=== PATIENT | male | born 1960 | race Caucasian/White ===

== ENCOUNTER 2017-07-26 21:49 | Inpatient (IN) | payer BC ==
[~2017-07-26] VITALS: Ht 185.4 cm; Wt 110.0 kg
[2017-07-26] MEDS ORDERED: NAPR500T3 PO (22:03)
[2017-07-26] MEDS ORDERED: MORP5SUP PR (22:03)
[2017-07-26] MEDS ORDERED: FLOM5CAP PO (22:03)
[2017-07-26] MEDS ORDERED: NS 1,000 ML IV ONE (22:45)
[2017-07-26] MEDS ORDERED: MAGNESIUM CITRATE 300 ML BTL PO ONE (23:00)
[2017-07-26 23:03] LABS: BASO % 0.1 % (0.0-1.0); EOS # 0.2 K/mm3 (0.0-0.50); EOS % 1.1 % (0.0-3.0); LARGE UNSTAINED CELL # 0.1 K/mm3 (0.0-0.4); LARGE UNSTAINED CELL % 0.7 % (0.0-4.0); LYMPH # 0.8 K/mm3 (1.5-4.5); MEAN CORPUSCULAR HEMOGLOBIN 31.6 pg (27.0-33.0); MEAN CORPUSCULAR HGB CONC 33.5 g/dl (32.0-36.5); MEAN CORPUSCULAR VOLUME 94.3 fl (80.0-96.0); MONO # 0.7 K/mm3 (0.0-0.8); MONO % 4.5 % (0.0-5.0); NEUTROPHILS # 12.8 K/mm3 (1.8-7.7); NEUTROPHILS % 88.6 % (36.0-66.0); PLATELET COUNT, AUTOMATED 225 k/mm3 (150-450); RED CELL DISTRIBUTION WIDTH 12.8 % (11.5-14.5); WHITE BLOOD COUNT 14.5 K/mm3 (4.0-10.0)
[2017-07-26 23:23] LABS: CALCIUM LEVEL 9.4 MG/DL (8.5-10.1); CREATININE FOR GFR 1.69 MG/DL (0.70-1.30); GLOMERULAR FILTRATION RATE 44.7 (>56); POTASSIUM SERUM 4.1 MEQ/L (3.5-5.1)
[2017-07-26 23:47] LABS: YEAST LIKE CELL URINE AUTO SMALL
--- NOTE | 2017-07-26 23:50 | REPUSA ---
CT of the abdomen and pelvis without contrast Clinical statement: Pain. Technique: Multiple axial CT images were obtained from the base of the lungs to the floor of the pelv is utilizing 5 mm axial slices without administration of contrast. Coronal and sagittal reconstructio ns were also obtained. No comparison is available. Findings: Chest: The visualized lung bases are clear. Abdomen: The kidneys are normal in size bilaterally. There is severe left-sided hydronephrosis, with left perinephric inflammatory changes noted. There is also severe left-sided hydroureter. Several obs tructing stones are seen in the distal left ureter, measuring up to 5 mm in diameter. The liver, sple en, pancreas, gallbladder and adrenal glands are unremarkable. The aorta demonstrates normal caliber and contour. There is no abdominal lymphadenopathy or ascites. Pelvis: The bowel is unremarkable, with no obstructive or inflammatory changes. The urinary bladder i s within normal limits. There is no pelvic lymphadenopathy or ascites. The other pelvic structures ap pear unremarkable. Bones: There are no suspicious osseous abnormalities seen. Impression: Severe left-sided hydronephrosis with extensive perinephric inflammation and stranding. T his is caused by several obstructing stones in the distal left ureter, measuring up to 5 mm in diamet er.
[2017-07-27] MEDS ORDERED: MAGNESIUM CITRATE 300 ML BTL PO ONE (00:15)
[2017-07-27] MEDS ORDERED: ASPI81CH PO (02:20)
[2017-07-27] MEDS ORDERED: CLAR1TAB2 PO (02:20)
[2017-07-27] MEDS ORDERED: VITA100066 PO (02:20)
[2017-07-27] MEDS ORDERED: MORP15TA2 PO (02:20)
[2017-07-27] MEDS ORDERED: VITMTA PO (02:20)
[2017-07-27] MEDS ORDERED: TYLE500T78 PO (02:20)
[2017-07-27] MEDS ORDERED: [UNRECOGNIZED DRUG - SUPPLY] PO (02:20)
[2017-07-27] MEDS ORDERED: PATIENT COMMENT (02:21)
[2017-07-27] MEDS ORDERED: MORPHINE 4 MG/ML 1ML SYRINGE IV PRN (05:00)
[2017-07-27] MEDS ORDERED: KCL 20MEQ IN D5/0.45NS 1000ML 1,000 ML IV SCH (05:00)
[2017-07-27] MEDS ORDERED: ONDANSETRON 4MG/2ML VIAL (J2405) IV PRN (05:00)
[2017-07-27 06:00] VITALS: BP 135/79
[2017-07-27] MEDS ORDERED: LevoFLOXacin IV 500 MG in APPROPRIATE DILUENT 1 EA IV SCH (06:00)
[2017-07-27] MEDS ORDERED: KETOROLAC 30 MG/ML VIAL (J1885) IV SCH (06:00)
[2017-07-27 06:48] LABS: MEAN CORPUSCULAR HEMOGLOBIN 32.3 pg (27.0-33.0); MEAN CORPUSCULAR HGB CONC 34.5 g/dl (32.0-36.5); MEAN CORPUSCULAR VOLUME 93.7 fl (80.0-96.0); RED CELL DISTRIBUTION WIDTH 12.4 % (11.5-14.5); WHITE BLOOD COUNT 11.3 K/mm3 (4.0-10.0)
[2017-07-27 07:05] LABS: CREATININE FOR GFR 1.67 MG/DL (0.70-1.30); GLOMERULAR FILTRATION RATE 45.4 (>56); POTASSIUM SERUM 4.1 MEQ/L (3.5-5.1)
[2017-07-27] MEDS ORDERED: PANTOPRAZOLE 40MG INJ (PROTONIX) (C9113) IV SCH (09:00)
[2017-07-27] MEDS ORDERED: TAMSULOSIN 0.4 MG CAP PO SCH (09:00)
[2017-07-27] MEDS ORDERED: LEVA1TAB2 PO (10:01)
[2017-07-27] MEDS ORDERED: LEVO500T3 PO (10:03)
--- NOTE | 2017-07-27 11:01 | DSES ---
DATE OF ADMISSION: 07/27/2017 DATE OF DISCHARGE: 07/27/2017 ADMISSION DIAGNOSIS: Left hydronephrosis and left distal ureteral stone 5 mm in diameter. DISCHARGE DIAGNOSIS: Left hydronephrosis and left distal ureteral stone 5 mm in diameter. ADMITTING SURGEON: Dr. Fernando Billy. DISCHARGE SURGEON: Dr. Fernando Billy. HISTORY OF PRESENT ILLNESS: This is a 57-year-old male patient that has been having left flank pain due to a 5 mm stone in the distal ureter since about 5 days ago. He was treated in [place] during a vacation trip with morphine, Flomax , Tylenol. [facility] of severe pain not being alleviated with IV medications. For this reason, he was admitted to the hospital and to urology service. HOSPITALIZATION COURSE: The patient did very well on Toradol, morphine IV and oral Flomax. The patient has no nausea, no vomiting. He is passing gas, ambulating very well. Just after 6 hours of implementation of morphine and Toradol, the pain completely resolved. The patient is urinating very well clear urine. No nausea. No vomiting. The patient would like to go home. Since he lives in [place], he has a [address] We have recommended two options: 1) Medical explosive therapy with Flomax, morphine and Tylenol for pain versus cystoscopy, left retrograde pyelogram, left ureteroscopy, basket extraction of stone, possible laser stone lithotripsy, possible double J stent placement. The patient would like to have medical explosive therapy. He would like to be discharged and continue his drive home. He will followup with primary urology and primary physician in [place] in his home town. He has agreed on the plan. We are sending Levaquin 500 mg one tablet by mouth daily for 10 days in addition to his morphine that he has been taking, his Flomax that he has been taking as well as his Tylenol. The patient and his are agreeable to the plan and have requested to be discharged. There were no complications during the hospitalization. JOHNNY
== END 2017-07-27 11:40 | disposition home or self-care (01) | DRG 465 ==
LOC: M ED 21:49 → M ED INP 07-27 03:10 → M MS5PR 07-27 05:15
PROVIDERS: ADMIT Urology; ATTEND Urology
DX: N20.1 Calculus of ureter (principal); N13.30 Unspecified hydronephrosis